=== PATIENT | male | born 1960 | race Caucasian/White ===

== ENCOUNTER → 2023-02-26 | Outpatient (CLI) | payer OTHER ==
--- NOTE | 2023-02-26 12:42 | NM ---
EXAMINATION TYPE: NM stress cardiolite complete DATE OF EXAM: 02/26/2023 COMPARISON: NONE HISTORY: Chest pain TECHNIQUE: After the intravenous administration of 9.5 mCi Tc 99m Sestamibi - Rest images obtained 4 5 minutes post injection. The patient exercised using a ARLENE protocol and 1 minute prior to peak e xercise was injected with 26.3 mCi Tc 99m Sestamibi - Stress images obtained 20 minutes post injectio n. FINDINGS: Targeted heart rate was achieved during performance of the study. Review of stress and rest SPECT gricelda ges demonstrates no distinct perfusion abnormality. Gated analysis shows normal wall motion with an estimated left ventricular ejection fraction of 56 %. IMPRESSION: No scintigraphic evidence for reversible ischemia
--- NOTE | 2023-02-28 11:48 | CA ---
Exercise Nuclear Stress Test Report Name: Randall Wright Exam Date: 02/26/2023 11:11 Exam Location: [place] Stress Ht (in): 70 Wt (lb): 180 BSA: 2.00 Ordering Phys: Vernon Camacho MD Referring Phys: BOB, Technologist: Vineet Alegria Age: 62 Gender: M : 1960 Procedure CPT: Indications: R07.9 CHEST PAIN, UNSPECIFIED ICD-10 Codes: Patient History: Medications: LISINOPRIL,,,,, Meds past 24 hrs: Pretest Chest Pain: STRESS TEST Eran Protocol Exercise Duration (min:sec): 10:[address] Depressions (mm): Angina Score: Hudson Score: Resting HR (bpm): 65 Peak HR (bpm): 144 Resting BP (mmHg): 143 / 75 Peak BP (mmHg): 199 / 86 MPHR: 158 Target HR: 134 % MPHR: 91 METS: 12.1 Total Dose: Peak Dose: Atropine: Double Product: 67308 BP Response: Stress Termination: TARGET HR REACHED/MAX EXERTION Stress Symptoms: FATIGUE Stress Summary: ECG ANALYSIS Resting ECG: Stress ECG: CONCLUSIONS Excellent exercise tolerance Normal EKG in response to exercise Dr. Pablo Ann MD (Electronically Signed) Final Date: 28 February 2023 11:47
== END | disposition home or self-care (01) ==
LOC: RADNMMAIN 08:22
PROVIDERS: ATTEND Family Medicine
DX: R07.9 Chest pain, unspecified (principal)
CPT/HCPCS: 93017; 78452; A9500